=== PATIENT | female | born 2000 | race Caucasian/White ===

== ENCOUNTER → 2022-06-17 | Outpatient (REF) | payer OTHER | LOC: M LAB REF 16:23 | PROVIDERS: ATTEND Physician Assistant Medical | DX: Z11.3 Encounter for screening for infections with a predominantly sexual mode of transmission (principal) ==

== ENCOUNTER → 2022-08-05 | Outpatient (REF) | payer OTHER ==
[2022-08-05 17:15] LABS: FREE T4 1.08 NG/DL (0.89-1.76)
[2022-08-05 17:16] LABS: ALBUMIN 3.9 G/DL (3.2-5.2); ALKALINE PHOSPHATASE 62 U/L (46-116); ALT/SGPT 18 U/L (7.0-40); AST/SGOT 15 U/L (<34); BILIRUBIN,TOTAL 0.4 MG/DL (0.3-1.2); BLOOD UREA NITROGEN 13 MG/DL (9-23); CALCIUM LEVEL 9.2 MG/DL (8.5-10.1); CARBON DIOXIDE LEVEL 27 MMOL/L (20-31); CHLORIDE LEVEL 107 MMOL/L (98-107); CHOLESTEROL LEVEL 151 MG/DL (<200); CHOLESTEROL RISK RATIO 3.51 (<5); CREATININE FOR GFR 0.64 MG/DL (0.55-1.30); GLOMERULAR FILTRATION RATE > 60.0 (>60); GLUCOSE, FASTING 93 MG/DL (60-100); HDL CHOLESTEROL 42.9 MG/DL (>40); LDL CHOLESTEROL 77.1 MG/DL (<100); NON-HDL-C 108 MG/DL; POTASSIUM SERUM 4.7 MMOL/L (3.5-5.1); SODIUM LEVEL 139 MMOL/L (136-145); THYROID STIMULATING HORMONE 3.015 uIU/ML (0.55-4.78); TOTAL PROTEIN 6.7 G/DL (5.7-8.2); TRIGLYCERIDES LEVEL 155 MG/DL (<150)
[2022-08-05 17:17] LABS: BASO # 0.1 10^3/uL (0.0-0.2); BASO % 0.7 % (0.0-1.0); EOS # 0.1 10^3/uL (0.0-0.5); EOS % 1.9 % (0.0-3.0); HEMATOCRIT 40.1 % (36.0-47.0); HEMOGLOBIN 12.7 g/dl (12.0-15.5); LYMPH # 1.9 10^3/uL (1.5-5.0); LYMPH % 25.7 % (24.0-44.0); MEAN CORPUSCULAR HEMOGLOBIN 28.8 pg (27.0-33.0); MEAN CORPUSCULAR HGB CONC 31.7 g/dl (32.0-36.5); MEAN CORPUSCULAR VOLUME 90.9 fl (80.0-96.0); MONO # 0.5 10^3/uL (0.0-0.8); MONO % 6.7 % (2.0-8.0); NEUTROPHILS # 4.9 10^3/uL (1.5-8.5); NEUTROPHILS % 64.6 % (36.0-66.0); PLATELET COUNT, AUTOMATED 285 10^3/uL (150-450); RED BLOOD COUNT 4.41 10^6/uL (4.00-5.40); WHITE BLOOD COUNT 7.6 10^3/uL (4.0-10.0)
[2022-08-05 17:18] LABS: TOTAL 25(OH) VITAMIN D 13.5 NG/ML (20.0-100.0)
[2022-08-05 17:40] LABS: HIV 1&2 SCREEN CENTAUR NEGATIVE (NEGATIVE)
[2022-08-05 17:42] LABS: HEMOGLOBIN A1c 4.8 % (4.0-6.0)
== END ==
LOC: M LAB REF 16:42
PROVIDERS: ATTEND Nurse Practitioner Family
DX: Z11.4 Encounter for screening for human immunodeficiency virus [HIV] (principal); Z13.228 Encounter for screening for other metabolic disorders; Z11.59 Encounter for screening for other viral diseases

== ENCOUNTER 2022-10-10 02:01 | Day surgery (SDC) | payer OTHER ==
[2022-10-10] VITALS (7 sets, daily range): BP systolic 105–122; BP diastolic 58–74
[~2022-10-10] VITALS: Ht 149.9 cm; Wt 72.7 kg
[2022-10-10] MEDS ORDERED: ERGO500029 PO (02:12)
[2022-10-10] MEDS ORDERED: ONDANSETRON 4MG 2ML VIAL IV ONE (04:35)
[2022-10-10] MEDS: fentaNYL 100 MCG/2 ML INJECTION IV PRN ×2 (04:49→06:04)
[2022-10-10 05:00] LABS: BASO % 0.3 % (0.0-1.0); EOS # 0.1 10^3/uL (0.0-0.5); EOS % 0.7 % (0.0-3.0); HEMATOCRIT 38.7 % (36.0-47.0); HEMOGLOBIN 12.7 g/dl (12.0-15.5); LYMPH # 2.4 10^3/uL (1.5-5.0); LYMPH % 16.9 % (24.0-44.0); MEAN CORPUSCULAR HGB CONC 32.8 g/dl (32.0-36.5); MEAN CORPUSCULAR VOLUME 88.4 fl (80.0-96.0); MONO # 0.7 10^3/uL (0.0-0.8); MONO % 5.3 % (2.0-8.0); NEUTROPHILS # 10.8 10^3/uL (1.5-8.5); NEUTROPHILS % 76.4 % (36.0-66.0); PLATELET COUNT, AUTOMATED 297 10^3/uL (150-450); RED BLOOD COUNT 4.38 10^6/uL (4.00-5.40); WHITE BLOOD COUNT 14.1 10^3/uL (4.0-10.0)
[2022-10-10 05:22] LABS: BLOOD UREA NITROGEN 6 MG/DL (9-23); CARBON DIOXIDE LEVEL 27 MMOL/L (20-31); CHLORIDE LEVEL 105 MMOL/L (98-107); CREATININE FOR GFR 0.65 MG/DL (0.55-1.30); GLOMERULAR FILTRATION RATE > 60.0 (>60); GLUCOSE, FASTING 104 MG/DL (60-100); SODIUM LEVEL 139 MMOL/L (136-145)
[2022-10-10 05:26] LABS: HCG, SERUM QUALITATIVE NEGATIVE (NEGATIVE)
[2022-10-10] MEDS ORDERED: AMPICILLIN SOD/SULBACTAM SOD 1.5 GM in D5W MINI-BAG PLUS 50 ML IV ONE (06:40)
[2022-10-10] MEDS ORDERED: NS 1,000 ML IV SCH (07:15)
[2022-10-10] MEDS ORDERED: HOME MED LIST COMPLETE! XX SCH (07:40)
[2022-10-10 08:14] LABS: RSV AMPLIFICATION NEGATIVE (NEGATIVE)
[2022-10-10] MEDS ORDERED: ONDANSETRON 4MG 2ML VIAL IV PRN (08:25)
[2022-10-10] MEDS ORDERED: MORPHINE 4 MG/ML 1ML VIAL IV PRN (08:25)
[2022-10-10] MEDS ORDERED: KETOROLAC 30 MG/ML 1ML VIAL IV PRN (08:25)
[2022-10-10] MEDS: LR 1,000 ML IV SCH ×2 (08:50→17:08)
[2022-10-10] MEDS: AMPICILLIN SOD/SULBACTAM SOD 3 GM in D5W MINI-BAG PLUS 100 ML IV SCH ×2 (13:09→21:04)
[2022-10-10] MEDS ORDERED: LIDOCAINE 1% SDV 30ML VIAL As Ordered ONE (16:51)
[2022-10-10] MEDS ORDERED: BUPIVACAINE HCL 0.25% 30ML VIAL As Ordered ONE (16:51)
[2022-10-10] MEDS ORDERED: ONDANSETRON 4MG 2ML VIAL As Ordered ONE (18:23)
[2022-10-10] MEDS ORDERED: SUGAMMADEX SODIUM 500 MG/5 ML VIAL (BRIDION) As Ordered ONE (18:23)
[2022-10-10] MEDS ORDERED: propofoL 200 MG/20 ML VIAL As Ordered ONE (18:23)
[2022-10-10] MEDS ORDERED: MIDAZOLAM INJ 2MG/2ML VIAL As Ordered ONE (18:23)
[2022-10-10] MEDS ORDERED: fentaNYL 100 MCG/2 ML INJECTION As Ordered ONE (18:23)
[2022-10-10] MEDS ORDERED: LIDOCAINE 2% 100MG/5ML SDV (FOR ANES.) As Ordered ONE (18:23)
[2022-10-10] MEDS ORDERED: KETOROLAC 60MG 2ML VIAL As Ordered ONE (18:23)
[2022-10-10] MEDS ORDERED: ROCURONIUM BROMIDE 50MG/5ML VIAL As Ordered ONE (18:23)
[2022-10-10] MEDS ORDERED: UNASYN 3GM VIAL As Ordered ONE (19:03)
[2022-10-10] MEDS ORDERED: METOCLOPRAMIDE INJ 10MG/2ML VIAL IV STA (20:32)
[2022-10-11] MEDS: LR 1,000 ML IV SCH (00:30)
[2022-10-11 00:40] VITALS: BP 105/70
[2022-10-11] MEDS: AMPICILLIN SOD/SULBACTAM SOD 3 GM in D5W MINI-BAG PLUS 100 ML IV SCH ×2 (00:45→06:01)
[2022-10-11 01:40] VITALS: BP 115/60
[2022-10-11 05:40] VITALS: BP 120/64
[2022-10-11 06:10] LABS: BASO % 0.1 % (0.0-1.0); HEMATOCRIT 38.3 % (36.0-47.0); HEMOGLOBIN 12.2 g/dl (12.0-15.5); LYMPH # 0.8 10^3/uL (1.5-5.0); MEAN CORPUSCULAR HEMOGLOBIN 28.8 pg (27.0-33.0); MEAN CORPUSCULAR HGB CONC 31.9 g/dl (32.0-36.5); MEAN CORPUSCULAR VOLUME 90.5 fl (80.0-96.0); MONO # 0.2 10^3/uL (0.0-0.8); NEUTROPHILS # 9.9 10^3/uL (1.5-8.5); NEUTROPHILS % 90.4 % (36.0-66.0); PLATELET COUNT, AUTOMATED 301 10^3/uL (150-450); RED BLOOD COUNT 4.23 10^6/uL (4.00-5.40); WHITE BLOOD COUNT 10.9 10^3/uL (4.0-10.0)
[2022-10-11 06:59] LABS: BLOOD UREA NITROGEN < 5 MG/DL (9-23); CALCIUM LEVEL 9.1 MG/DL (8.5-10.1); CARBON DIOXIDE LEVEL 25 MMOL/L (20-31); CHLORIDE LEVEL 104 MMOL/L (98-107); CREATININE FOR GFR 0.53 MG/DL (0.55-1.30); GLOMERULAR FILTRATION RATE > 60.0 (>60); GLUCOSE, FASTING 117 MG/DL (60-100); POTASSIUM SERUM 4.8 MMOL/L (3.5-5.1); SODIUM LEVEL 138 MMOL/L (136-145)
== END 2022-10-11 11:27 | disposition home or self-care (01) ==
LOC: M ED 02:01 → M SDC 08:24 → ENRESERV 09:41 → M PED 10:12 → M MSPAV 20:50 → M SDC 10-11 11:27
PROVIDERS: ATTEND Surgery
DX: K35.30 Acute appendicitis with localized peritonitis, without perforation or gangrene (principal); R00.2 Palpitations; J45.909 Unspecified asthma, uncomplicated
CPT/HCPCS: 36415; 44970; 80048; 81001; 84703; 85025; 87086; 87631; 88304; 96365; 96366; 96375; 96376; 99284; J0295; J1100; J1885; J2250; J2405; J2765; J3010

== ENCOUNTER → 2022-11-19 | Outpatient (REF) | payer OTHER ==
[~2022-11-19] MED LIST: ERGO500029 PO
== END ==
LOC: M LAB REF 16:32
PROVIDERS: ATTEND Nurse Practitioner Family
DX: R19.7 Diarrhea, unspecified (principal)

== ENCOUNTER → 2024-02-23 | Outpatient (REF) | payer OTHER ==
[2024-02-23 18:34] LABS: BLOOD UREA NITROGEN 9 MG/DL (9-23); CALCIUM LEVEL 9.3 MG/DL (8.5-10.1); CARBON DIOXIDE LEVEL 25 MMOL/L (20-31); CHLORIDE LEVEL 107 MMOL/L (98-107); CREATININE FOR GFR 0.63 MG/DL (0.55-1.30); GLOMERULAR FILTRATION RATE > 60.0 (>60); GLUCOSE, FASTING 87 MG/DL (60-100); IMMUNOGLOBULIN A 109.6 MG/DL (40-350); POTASSIUM SERUM 4.2 MMOL/L (3.5-5.1); SODIUM LEVEL 136 MMOL/L (136-145)
[2024-02-23 18:35] LABS: THYROID STIMULATING HORMONE 2.276 uIU/ML (0.55-4.78)
== END ==
LOC: M LAB REF 16:17
PROVIDERS: ATTEND Nurse Practitioner Family
DX: E66.9 Obesity, unspecified (principal); K52.9 Noninfective gastroenteritis and colitis, unspecified; Z68.31 Body mass index [BMI] 31.0-31.9, adult

== ENCOUNTER → 2024-07-05 | Outpatient (REF) | payer OTHER ==
[2024-07-05 18:06] LABS: Trichomonas vaginalis (AMP) NOT DETECTED (NEGATIVE)
[2024-07-05 18:30] LABS: GC DNA AMPLIFICATION NEGATIVE (NEGATIVE)
== END ==
LOC: M LAB REF 16:11
PROVIDERS: ATTEND Physician Assistant
DX: Z11.3 Encounter for screening for infections with a predominantly sexual mode of transmission (principal)

== ENCOUNTER → 2024-07-06 | Outpatient (REF) | payer OTHER ==
[2024-07-06 18:03] LABS: Trichomonas vaginalis (AMP) NOT DETECTED (NEGATIVE)
[2024-07-06 18:26] LABS: GC DNA AMPLIFICATION NEGATIVE (NEGATIVE)
== END ==
LOC: M LAB REF 16:01
PROVIDERS: ATTEND Physician Assistant
DX: R39.89 Other symptoms and signs involving the genitourinary system (principal)

== ENCOUNTER → 2025-01-11 | Outpatient (CLI) | payer OTHER ==
[2025-01-11 13:20] LABS: BASO # 0.0 10^3/uL (0.0-0.2); BASO % 0.6 % (0.0-1.0); EOS # 0.1 10^3/uL (0.0-0.5); EOS % 1.6 % (0.0-3.0); LYMPH # 1.7 10^3/uL (1.5-5.0); LYMPH % 24.5 % (24.0-44.0); MONO # 0.4 10^3/uL (0.0-0.8); MONO % 5.2 % (2.0-8.0); NEUTROPHILS # 4.6 10^3/uL (1.5-8.5); NEUTROPHILS % 67.8 % (36.0-66.0); PLATELET COUNT, AUTOMATED 250 10^3/uL (150-450)
[2025-01-11 13:45] LABS: CALCIUM LEVEL 8.8 MG/DL (8.5-10.1); CARBON DIOXIDE LEVEL 27 MMOL/L (20-31); CHLORIDE LEVEL 103 MMOL/L (98-107); CREATININE FOR GFR 0.62 MG/DL (0.55-1.30); GLOMERULAR FILTRATION RATE > 90.0 (>60); MAGNESIUM LEVEL 2.0 MG/DL (1.8-2.4); POTASSIUM SERUM 4.2 MMOL/L (3.5-5.1); SODIUM LEVEL 139 MMOL/L (136-145)
[2025-01-11 13:47] LABS: FREE T4 1.21 NG/DL (0.89-1.76)
[2025-01-11 13:48] LABS: TOTAL 25(OH) VITAMIN D 28.8 NG/ML (20.0-100.0)
== END ==
LOC: M EKG 12:17
PROVIDERS: ATTEND Nurse Practitioner Family
DX: R00.2 Palpitations (principal)

== ENCOUNTER → 2025-01-18 | Outpatient (CLI) | payer OTHER | LOC: M EKG 12:54 | PROVIDERS: ATTEND Nurse Practitioner Family | DX: R00.2 Palpitations (principal); Z53.9 Procedure and treatment not carried out, unspecified reason ==

== ENCOUNTER → 2025-05-18 | Outpatient (CLI) | payer OTHER | LOC: M RAD 12:36 | PROVIDERS: ATTEND Physician Assistant | DX: R94.31 Abnormal electrocardiogram [ECG] [EKG] (principal) ==